=== PATIENT | female | born 1935 ===

== ENCOUNTER → 2016-07-02 | Outpatient (CLI) | payer MEDICARE ==
[~2016-07-02] MED LIST: IOHEXOL 350 MG/ML 100ML VIAL. IV ONE
[2016-07-02 13:27] LABS: CREATININE 0.8 mg/dL (0.6-1.0); GFR 69.2
--- NOTE | 2016-07-02 14:44 | RAD ---
Indication abdominal aortic aneurysm. CTA targeted to the abdominal aorta was performed. MIP images were generated and reviewed. Volume rendered images were also generated and reviewed. 90 cc of Omnipaque 350 was administered intravenously. No oral contrast was administered. No prior imaging of the abdominal aorta is available. The lung bases are clear. The liver and spleen appear unremarkable. The gallbladder is partially contracted but grossly normal. The pancreas adrenal glands and kidneys appear unremarkable. Acute finding in the abdomen is not seen. No acute or significant finding is seen in the pelvis. 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 There are degenerative changes in the lumbar spine. There is an infrarenal abdominal aortic aneurysm. It measures maximally 4.6 cm. The aneurysm begins approximately 2.7 cm caudal to the origin of the renal arteries. (Both renal arteries originate at the same level off the abdominal aorta). The renal arteries appear patent. The SMA and celiac are widely patent. The KUNAL is patent. The aneurysm extends over approximately a 7.2 cm length. The internal iliac arteries are unremarkable. There is slight dilatation of the right common iliac artery. IMPRESSION: Infrarenal abdominal aortic aneurysm measuring maximally approximately 4.6 cm in greatest dimension PQRS Compliance Statement: One or more of the following individualized dose reduction techniques were utilized for this examination: 1. Automated exposure control 2. Adjustment of the mA and/or kV according to patient size 3. Use of iterative reconstruction technique
== END | disposition home or self-care (01) ==
LOC: CT 12:44
DX: I71.4 Abdominal aortic aneurysm, without rupture (principal)
CPT/HCPCS: 36415; 74174; 82565; 84520; Q9967